=== PATIENT | female | born 1955 | race Caucasian/White ===

== ENCOUNTER 2023-12-23 19:40 | Emergency (ER) | payer MEDICARE, SELFPAY ==
[2023-12-23 19:41] VITALS: BP 139/72
--- NOTE | 2023-12-23 20:21 | ED.SKININJ ---
HPI-Injury
<Stephanie Snow MD - Last Filed: 12/23/23 20:42>
General
Chief Complaint: Skin Problem
Time Seen by Provider: 12/23/23 19:53
<Consuelo Barajas NP - Last Filed: 12/23/23 22:14>
General
Source: patient
Exam Limitations: none
Nursing documentation reviewed up to this point in time: agreed with
History of Present Illness-Injury
Initial Injury comments:
68 yo female with h/o MS, HLD presents with abscess in soft tissue right low groin area. Started 10 days ago, saw PCP 2 days ago and started on Doxycycline and she's had 3 doses. Area worsening. Denies fever/chills, denies nausea. It has started to
drain.
Past History
<Consuelo Barajas LAB ENGINEER - Last Filed: 12/23/23 22:14>
Past History
ED Past Medical History: Hypercholesterolemia and NIDDM
ED Past Surgical History: Other (Mohs surgery two abdominal cysts 11/2023)
Social History
Tobacco: Non-smoker
Alcohol: None
Drug: None
Personal:
Living: with family
Employment: Retired
Family History
Family History: Other (Rheumatic heart disease)
Review of Systems
<Consuelo Barajas LAB ENGINEER - Last Filed: 12/23/23 22:14>
Review of Systems
Allergies reviewed?: Yes
All Other Systems: ROS reviewed and negative except as documented in HPI and ROS
Constitutional: Denies fever or chills
ABD/GI: Denies abdominal pain, nausea, vomiting or diarrhea
: Denies dysuria, frequency or difficulty voiding
Skin: Reports other (abscess right groin)
Phy Exam
<Consuelo Barajas LAB ENGINEER - Last Filed: 12/23/23 22:14>
Physical Exam
Physical Exam:
GENERAL: No acute distress. A&Ox3.
CONSTITUTIONAL: Afebrile.
RESPIRATORY: Regular respirations, nonlabored, lungs clear.
CARDIOVASCULAR: Regular rate and rhythm, no murmurs, no rubs.
GI: Soft, nontender, normal BS
MUSCULOSKELETAL: Moves with ease. Well perfused.
SKIN: Warm, dry, pink. Abscess right lower groin
PSYCH: Normal mood and affect. Well kept, interactive and appropriate
NEUROLOGIC: Awake, alert and oriented. No focal neurological deficits
Course
<Stephanie Snow MD - Last Filed: 12/23/23 20:42>
Orders/Labs/Results
Orders:
Orders
12/23/23 20:21
Acetaminophen [Tylenol] 1,000 mg PO NOW STA
Vital Signs
Initial and Last Documented VS:
Initial Vital Signs
Temp Pulse Resp BP Pulse Ox
98.7 F 102 18 139/72 100
12/23/23 19:41 12/23/23 19:41 12/23/23 19:41 12/23/23 19:41 12/23/23 19:41
Last Documented Vital Signs
Temp Pulse Resp BP Pulse Ox
98.7 F 102 18 139/72 100
12/23/23 19:41 12/23/23 19:41 12/23/23 19:41 12/23/23 19:41 12/23/23 19:41
<Consuelo Barajas NP - Last Filed: 12/23/23 22:14>
Orders/Labs/Results
Orders:
Orders
12/23/23 20:21
Acetaminophen [Tylenol] 1,000 mg PO NOW STA
Vital Signs
Initial and Last Documented VS:
Initial Vital Signs
Temp Pulse Resp BP Pulse Ox
98.7 F 102 18 139/72 100
12/23/23 19:41 12/23/23 19:41 12/23/23 19:41 12/23/23 19:41 12/23/23 19:41
Last Documented Vital Signs
Temp Pulse Resp BP Pulse Ox
98.7 F 102 18 139/72 100
12/23/23 19:41 12/23/23 19:41 12/23/23 19:41 12/23/23 19:41 12/23/23 19:41
Procedures
<Consuelo Barajas, LAB ENGINEER - Last Filed: 12/23/23 22:14>
Incision/Drainage/Joint Aspiration
Right Lower Groin:
Anethesia: 1% Lidocaine with Epi
Preparation: cleaned with alcohol wipe
Type of procedure: incise and drain
Nature of site: abscess
Description of abscess: greater than 3cm (4 cm), involved incision, drainage and involves one area
How much fluid was obtained?: small amount
Fluid description: purulent
Treatment: left open for drainage
<Consuelo Barajas, LAB ENGINEER - Last Filed: 12/23/23 22:14>
MDM/Problems Addressed
Differential Diagnosis Includes:
skin abscess, infected cyst
MDM/Problems Addressed:
68 yo female with h/o MS, HLD presents with abscess in soft tissue right low groin area. Started 10 days ago, saw PCP 2 days ago and started on Doxycycline and she's had 3 doses. Area worsening. Denies fever/chills, denies nausea. It has started to
drain.
Dr. Snow in and opened the area a little more, small amount pus expressed. Left open for drainage. Pt will continue her Doxycycline
Referred back to PCP and given referral to [facility] if needed
Pt tolerated procedure well. Dressing applied
<Consuelo Barajas, LAB ENGINEER - Last Filed: 12/23/23 22:14>
*Critical Care Note
Total Time (30-74mins, 75-104mins- exclusive of procedures): Not Applicable
ED Attending Note
<Stephanie Snow MD - Last Filed: 12/23/23 20:42>
ED Attending Note
Patient seen and examined by attending physician: Yes
I performed the substantive portion of visit, reviewed & personally made and approve the management plan that is documented in note by myself or JUAN ANTONIO.: Yes
ED Attending Note:
I have seen and evaluated the patient with a [id number] encounter. I have spoken to the [PA] and involved in the medical history, the physical exam, medical decision making.
Evaluation and management service: agree unless noted differently below.
Results interpretation: agree unless noted differently below.
Patient is a 68-year-old woman with history of multiple sclerosis, prior cysts in her groin presenting to the emergency department with infected cyst. Patient states that she noticed a cyst in the right side of her groin a few days ago. She went
to her primary care doctor who started her on doxycycline. However she feels the swelling has slightly worsened. On exam patient does have a abscess to the right groin that is about 4 cm large with endurance and tenderness. No significant
fluctuance on my exam. Patient did have a incision and drainage completed prior to my evaluation. There was still some purulent drainage so I did extend the incision and express additional purulent drainage. Patient did tolerate the procedure
well. Will give patient [facility] follow-up as she does state that 1 of these has required surgical excision in the past before as it did not heal with outpatient management.
<Consuelo Barajas NP - Last Filed: 12/23/23 22:14>
-
Portions of this chart may have been created with voice recognition software.� Occasional wrong word or��sound alike� substitutions may have occurred due to the inherent limitations of voice recognition software.
Discharge Plan
Departure
Patient Disposition: Home (Routine Discharge)
Date of Disposition: 12/23/23
Time of Disposition: 20:28
Patient with high blood pressure during this ER visit?: No
Condition: Good
Discharge Problem:
Abscess of right groin
Instructions: Skin Abscess
Referrals:
Laura Morley MD [Active] - As needed
Chon Monroe DO [Family Provider] - Follow up in 2-3 days
Activity Restrictions/Additional Instructions:
As we discussed, Tylenol 650-1000 mg every 6 hours as needed for pain
Warm moist compress to the area 15 minutes 3-4 times a day, warm bath soak or warm shower running over area 2 times a day for 3 days.
Wash the area daily with soap and water as usual. After urinating or having a bowel movement cleanse area well or rinse in the shower
See your doctor in 2-3 days for recheck.
Continue the Doxycycline
Eat yogurt daily or take a probiotic while on antibiotics to help avoid diarrhea
I gave you the name of a [facility] doctor to use if needed.
Interventions
Interventions:
*Risk Screen - Suicide Last Done: 12/23/23 19:41
*General Assessment Last Done: 12/23/23 19:41
*Neglect/Abuse Screening Last Done: 12/23/23 19:41
ED- Fall Risk Assessment Last Done: 12/23/23 20:45
*Nursing Disposition Last Done: 12/23/23 20:45
ED-Skin Assessment Last Done: 12/23/23 20:32
Discharge Date and Time
Discharge Date/Time: 12/23/23 20:45
Print Language: [id number]
[2023-12-23] MEDS: TYLENOL 1000 MG PO (20:24)
== END 2023-12-23 20:45 | disposition home or self-care (01) ==
LOC: EMR 19:40
PROVIDERS: EMERGENCY PHYSICIAN Student in an Organized Health Care Education/Training Program; FAMILY PHYSICIAN Family Medicine
DX: L02.214 Cutaneous abscess of groin (principal); G35 Multiple sclerosis; E11.9 Type 2 diabetes mellitus without complications; E78.00 Pure hypercholesterolemia, unspecified; Z85.828 Personal history of other malignant neoplasm of skin; Z88.8 Allergy status to other drugs, medicaments and biological substances
CPT/HCPCS: 99283; 10060

== ENCOUNTER → 2024-05-14 11:21 | Outpatient (REF) | payer MEDICARE, SELFPAY | LOC: RAD 11:21 | PROVIDERS: ATTENDING PHYSICIAN Nurse Practitioner Family | DX: M25.551 Pain in right hip (principal) | CPT/HCPCS: 73502 ==

== ENCOUNTER → 2024-10-02 10:49 | Outpatient (REF) | payer MEDICARE, SELFPAY | LOC: MRI 3T 10:49 | PROVIDERS: ATTENDING PHYSICIAN Family Medicine | DX: G35 Multiple sclerosis (principal); R41.3 Other amnesia; R47.89 Other speech disturbances | CPT/HCPCS: 70553; A9575 ==

== ENCOUNTER → 2024-11-08 13:33 | Outpatient (REF) | payer MEDICARE, SELFPAY | LOC: PAVMRI 13:33 | PROVIDERS: ATTENDING PHYSICIAN Family Medicine | DX: G35 Multiple sclerosis (principal) | CPT/HCPCS: 72156; A9575 ==

== ENCOUNTER 2024-11-12 06:26 | Day surgery (SDC) | payer MEDICARE, SELFPAY ==
[2024-11-12 09:59] LABS: Glucose - Point of Care 106 mg/dl (70-99)
== END 2024-11-12 12:16 | disposition home or self-care (01) ==
LOC: GI 06:26
PROVIDERS: ATTENDING PHYSICIAN Surgery
DX: D12.5 Benign neoplasm of sigmoid colon (principal); K62.3 Rectal prolapse; K64.8 Other hemorrhoids
CPT/HCPCS: 45380; 82962; 88305